=== PATIENT | male | born 1985 | race Caucasian/White ===

== ENCOUNTER 2016-07-13 16:22 | Emergency (ER) | payer SELFPAY ==
[~2016-07-13] VITALS: Ht 175.3 cm; Wt 66.0 kg
[~2016-07-13 16:22] MED LIST: OLAN10 PO; SERT50 PO
[2016-07-13 16:45] VITALS: BP 143/79; PULSE 101; RESP 18; TEMP 98.5; O2SAT 97
--- NOTE | 2016-07-13 18:29 | PD ---
HPI Chief Complaint: Psychiatric Symptoms Time Seen by Provider: 17:09 Travel History International Travel<30 days: No Contact w/Intl Traveler<30days: No Traveled to known affect area: No History of Present Illness HPI 31-year-old male arrives under Claudio act. According to law enforcement note the patient was acting aggressively at his home. The patient states when he woke up his mom had taken something of his which made him mad and aggressive. He reports IV drug use; last injected 2 days ago. Reports injecting "everything." Denies alcohol use or drug use today. Reports alcohol use occasionally. Reports tobacco use daily. Reports marijuana use. Denies auditory or visual hallucinations. Denies suicidal or homicidal ideations. Denies being up-to-date on tetanus vaccination. Has no emergent medical complaints. Is complaining of some cuts to his hands, primarily one to his right thumb. Denies fever, chills, nausea, vomiting. Denies chest pain, shortness of breath, abdominal pain, nausea, vomiting. History of asthma. Denies other significant past medical history. No known allergies. No other modifying factors or associated signs and symptoms. PFSH Past Medical History Asthma: Yes Bipolar Disorder: Yes Diminished Hearing: No Respiratory: Yes (ASTHMA) Immunizations Current: No Schizophrenia: Yes Influenza Vaccination: No Past Surgical History Abdominal Surgery: Yes (LEFT INGUINAL HERNIA REPAIR) Other Surgery: Yes (SKIN GRAFTS ) Social History Alcohol Use: Yes ("OFTEN") Tobacco Use: Yes (1 PPD) Substance Use: Yes (SEE BELOW, CHRONIC SUBSTANCE ABUSE SINCE A YOUNG AGE) Allergies-Medications (Allergen,Severity, Reaction): Coded Allergies: No Known Allergies (Verified , 07/13/16) Reported Meds & Prescriptions Reported Meds & Active Scripts Active No Active Prescriptions or Reported Medications Review of Systems Except as stated in HPI: all other systems reviewed are Neg Physical Exam Narrative GENERAL: Well-nourished, well-developed male patient, in no acute distress; disheveled SKIN: Warm and dry. Track haywood noted to the left forearm. Right thumb with deep abrasion/cut; is without erythema, edema, drainage. Multiple scab haywood to scalp, bilateral upper extremities noted. All areas without signs of infection or cellulitic process. HEAD: Atraumatic. Normocephalic. EYES: Pupils equal and round. ENT: Mucosa pink and moist. NECK: Supple. Trachea midline. CARDIOVASCULAR: Regular rate and rhythm. No murmur appreciated. RESPIRATORY: No accessory muscle use. Clear to auscultation. Breath sounds equal bilaterally. GASTROINTESTINAL: Abdomen soft, non-tender, nondistended. Hepatic and splenic margins not palpable. Bowel sounds are active 4 quadrants. MUSCULOSKELETAL: No obvious deformities. No clubbing. No cyanosis. No edema. NEUROLOGICAL: Awake and alert. Oriented 3. No obvious cranial nerve deficits. Motor grossly within normal limits. Normal speech. Moves all extremities. 5/5 strength to all extremities. PSYCHIATRIC: No delusional thought processes. No hallucinations. Data Data Last Documented VS Vital Signs Date Time Temp Pulse Resp B/P Pulse Ox O2 Delivery O2 Flow Rate FiO2 07/13/16 18:13 101 20 07/13/16 16:45 98.5 143/79 97 Orders Complete Blood Count With Diff (07/13/16 16:57) Comprehensive Metabolic Panel (07/13/16 16:57) Drug Screen, Random Urine (07/13/16 16:57) Alcohol (Ethanol) (07/13/16 16:57) Salicylates (Aspirin) (07/13/16 16:57) Tylenol (Acetaminophen) (07/13/16 16:57) Psych Screen (07/13/16 16:57) Tetanus/Diphtheria Tox Adult (Tetanus/Di (07/13/16 18:30) Labs Laboratory Tests Test 07/13/16 07/13/16 17:00 19:10 Urine Opiates Screen NEG Urine Barbiturates Screen NEG Urine Amphetamines Screen POS Urine Benzodiazepines Screen NEG Urine Cocaine Screen NEG Urine Cannabinoids Screen POS White Blood Count 8.8 TH/MM3 Red Blood Count 4.60 MIL/MM3 Hemoglobin 14.5 GM/DL Hematocrit 40.4 % Mean Corpuscular Volume 87.8 FL Mean Corpuscular Hemoglobin 31.4 PG Mean Corpuscular Hemoglobin 35.8 % Concent Red Cell Distribution Width 13.7 % Platelet Count 223 TH/MM3 Mean Platelet Volume 8.6 FL Neutrophils (%) (Auto) 57.4 % Lymphocytes (%) (Auto) 26.3 % Monocytes (%) (Auto) 8.5 % Eosinophils (%) (Auto) 6.8 % Basophils (%) (Auto) 1.0 % Neutrophils # (Auto) 5.1 TH/MM3 Lymphocytes # (Auto) 2.3 TH/MM3 Monocytes # (Auto) 0.7 TH/MM3 Eosinophils # (Auto) 0.6 TH/MM3 Basophils # (Auto) 0.1 TH/MM3 CBC Comment DIFF FINAL Differential Comment Sodium Level 139 MEQ/L Potassium Level 4.7 MEQ/L Chloride Level 106 MEQ/L Carbon Dioxide Level 25.6 MEQ/L Anion Gap 7 MEQ/L Blood Urea Nitrogen 13 MG/DL Creatinine 1.00 MG/DL Estimat Glomerular Filtration 88 ML/MIN Rate Random Glucose 97 MG/DL Calcium Level 8.6 MG/DL Total Bilirubin 0.7 MG/DL Aspartate Amino Transf 135 U/L (AST/SGOT) Alanine Aminotransferase 198 U/L (ALT/SGPT) Alkaline Phosphatase 87 U/L Total Protein 7.2 GM/DL Albumin 3.0 GM/DL Salicylates Level LESS THAN 1.7 MG/DL Acetaminophen Level LESS THAN 2.0 MCG/ML Ethyl Alcohol Level LESS THAN 3 MG/DL MDM Medical Decision Making Medical Screen Exam Complete: Yes Emergency Medical Condition: Yes Medical Record Reviewed: Yes Differential Diagnosis Medical clearance for psych evaluation, substance induced mood disorder, psychosis, polysubstance abuse Narrative Course Patient presents under a Claudio act. Physical examination and vital signs are essentially unremarkable. Patient has no medical complaints to report. Psych screen has been ordered. If the laboratory results are unremarkable, the patient will be medically cleared for psychiatric evaluation and disposition. Diagnosis Primary Impression: Medical clearance for psychiatric admission Scripts No Active Prescriptions or Reported Meds Condition: Stable Shawna Vickers Jul 13, 2016 18:29
[2016-07-13] MEDS ORDERED: TETANUS/DIPHTHERIA TOXOID ADULT 0.5 ML VIAL IM ONE (18:30)
[2016-07-13 19:03] LABS: AMPHETAMINE, URINE POS (NEG); BARBITURATES, URINE NEG (NEG); COCAINE, URINE NEG (NEG)
[2016-07-13 19:30] VITALS: BP 126/74; PULSE 82; RESP 16; TEMP 98.2; O2SAT 97
[2016-07-13 19:45] LABS: AUTOMATED NEUTROPHIL # 5.1 TH/MM3 (1.8-7.7); BASOPHIL # 0.1 TH/MM3 (0-0.2); EOSINOPHIL # 0.6 TH/MM3 (0-0.4); EOSINOPHIL % 6.8 % (0.0-4.0); HEMATOCRIT 40.4 % (39.0-51.0); HEMO FLAGS DIFF FINAL; LYMPH % 26.3 % (9.0-44.0); LYMPHOCYTE # 2.3 TH/MM3 (1.0-4.8); MEAN CELL VOLUME 87.8 FL (80.0-100.0); MEAN CORPUSCULAR HEMOGLOBIN 31.4 PG (27.0-34.0); MEAN CORPUSCULAR HGB CONC 35.8 % (32.0-36.0); MONO % 8.5 % (0.0-8.0); NEUT % 57.4 % (16.0-70.0); PLATELET COUNT 223 TH/MM3 (150-450); RED CELL DISTRIBUTION WIDTH 13.7 % (11.6-17.2); WHITE BLOOD COUNT 8.8 TH/MM3 (4.0-11.0)
[2016-07-13 20:18] LABS: ANION GAP 7 MEQ/L (5-15)
[2016-07-13 20:21] LABS: ALKALINE PHOSPHATASE 87 U/L (45-117); ALT (GPT) 198 U/L (12-78); AST (GOT) 135 U/L (15-37); BICARBONATE 25.6 MEQ/L (21.0-32.0); BLOOD UREA NITROGEN 13 MG/DL (7-18); CHLORIDE 106 MEQ/L (98-107); GLOMERULAR FILTRATION RATE 88 ML/MIN (>89); SODIUM (NA) 139 MEQ/L (136-145); TOTAL BILIRUBIN ADULT 0.7 MG/DL (0.2-1.0)
[2016-07-13 20:28] LABS: ACETAMINOPHEN LESS THAN 2.0 MCG/ML (10.0-30.0); POTASSIUM 4.7 MEQ/L (3.5-5.1)
[2016-07-13 22:19] VITALS: BP 121/63; PULSE 68; RESP 18; TEMP 98.3; O2SAT 99
[2016-07-14 02:11] VITALS: BP 138/78; PULSE 102; RESP 18; O2SAT 98
[2016-07-14 06:09] VITALS: BP 130/60; PULSE 99; RESP 18; O2SAT 98
--- NOTE | 2016-07-14 16:21 | PD ---
History of Present Illness Chief Complaint: Psychiatric Symptoms Time Seen by Provider: 15:45 Travel History International Travel<30 Days: No Contact w/Intl Traveler<30days: No Known affected area: No Legal Status Legal Status: Claudio Act Claudio Act Signed By: Danna العلي Claudio Act Comment: 07/13/2016 1263 History of Present Illness: History of Present Illness 31-year-old male with history of substance abuse who is under Claudio act initiated by MARTI. According to law enforcement report the patient was acting aggressively at his home and was destroying property in the home. It is alleged he walks around with baseball bat and thinks that someone is after him. As per ed documentation The patient states that he woke up his mom and his mom had taken something of his which made him mad and aggressive.He admits to slamming a door but he did not assault his mother or anyone else. States " I would never hit a girl". He has along history of substance use including marijuana, crack, methamphetamines. He is an IV drug user and has track haywood in his left arm. As per EMR he has had several visits to ed and has been admitted to [facility] with drug induced psychosis. He tells me he does not follow up with discharge medications and continues to use drugs. His toxicology report is positive for amphetamines and cannabinoid. Patient was monitored in J pod and he has been sleeping. There has been no agitation and no erratic behavior while in J pod. he is pleasant , cooperative. Speech his clear . He answers questions appropriately and is forthcoming with his use of substances. He denies any hallucinations, no delusions and no paranoia. He denies any suicidal or homicidal ideation, intent or plan. He does report feeling nervous at times. He relates that " there is always drama at my house". No other reported stressors. I spoke with his sister, Reva who called our unit. She has no concerns regarding her brother and states that he did not threaten anyone. She goes on to say that his mother " filed false reports on him". She will be picking him up if he is discharged. [facility] Past Medical History Asthma: Yes Bipolar Disorder: Yes Diminished Hearing: No Respiratory: Yes (ASTHMA) Immunizations Current: No Schizophrenia: Yes Influenza Vaccination: No Past Surgical History Abdominal Surgery: Yes (LEFT INGUINAL HERNIA REPAIR) Other Surgery: Yes (SKIN GRAFTS ) Psychiatric History Psychiatric History Hx Psychiatric Treatment: [facility] ADMISSIONS 11/08-11/11/2015 FOR DRUG INDUCED PSYCHOSIS. 10/27-11/05/2015 FOR PSYCHOSIS, UNSPECIFIED. H/O SCHIZOPHRENIA, BIPOLAR D/O AND PREVIOUS SUICIDE ATTEMPT. DENIES TAKING ANY CURRENT PSYCHOTROPIC MEDICATIONS. History of Inpatient Treatment: Yes Guns or firearms in home: No Social History Single male. Completed 8th grade. Never and no children. Lives with his mother. Works as a day agriculture laborer. Hx Alcohol Use: Yes ("OFTEN") Hx Tobacco Use: Yes (1 PPD) Hx Substance Use: Yes Substance Use Type: Crack, Marijuana, Amphetamines-Stimulants, Nicotine/ Cigarettes, Cocaine, Other Hx of Substance Use Treatment: No Family Psychiatric History unknown mental illness in his mother Allergies-Medications (Allergen,Severity, Reaction): Coded Allergies: No Known Allergies (Verified , 07/13/16) Reported Meds & Prescriptions Reported Meds & Active Scripts Active No Active Prescriptions or Reported Medications Review of Systems Constitutional: DENIES: Diaphoretic episodes, Fatigue, Fever, Weight gain, Weight loss, Chills, Dizziness, Change in appetite, Night Sweats Endocrine: DENIES: Heat/cold intolerance, Polydipsia, Polyuria, Polyphagia Eyes: DENIES: Blurred vision, Diplopia, Eye inflammation, Eye pain, Vision loss , Photosensitivity, Double Vision Ears, nose, mouth, throat: DENIES: Tinnitus, Hearing loss, Vertigo, Nasal discharge, Oral lesions, Throat pain, Hoarseness, Ear Pain, Running Nose, Epistaxis, Sinus Pain, Toothache, Odynophagia Cardiovascular: DENIES: Chest pain, Palpitations, Syncope, Dyspnea on Exertion , PND, Lower Extremity Edema, Orthopnea, Claudication Gastrointestinal: DENIES: Abdominal pain, Black stools, Bloody stools, Constipation, Diarrhea, Nausea, Vomiting, Difficulty Swallowing, Anorexia Genitourinary: DENIES: Sexual dysfunction, Urinary frequency, Urinary incontinence, Urgency, Hematuria, Dysuria, Nocturia, Penile Discharge, Testicular Pain, Testicular Swelling Musculoskeletal: DENIES: Joint pain, Muscle aches, Stiffness, Joint Swelling, Back pain, Neck pain Integumentary: COMPLAINS OF: Abnormal pigmentation (track mars.) Hematologic/lymphatic: DENIES: Bruising, Lymphadenopathy Neurologic: DENIES: Abnormal gait, Headache, Localized weakness, Paresthesias, Seizures, Speech Problems, Tremor, Poor Balance Psychiatric: DENIES: Anxiety, Confusion, Mood changes, Depression, Hallucinations, Agitation, Suicidal Ideation, Homicidal Ideation, Delusions Exam Alert: Yes [place]: Person (ox4) Mood: Calm Affect: Euthymic Speech: Clear, Logical Eye Contact: Normal Memory Intact: Comment (no impairment) Hallucinations: Other (negative) Delusions: No Suicidal: Ideation (deneis any) Homicidal: Ideation (deneis any) Insight/Judgement poor..not impaired MDM Medical Decision Making Medical Record Reviewed: Yes Assessment/Plan 31 year old with hx of substance use disorder. He presented under a bA for erratic and aggressive behavior in context tof substance intoxication and family argument. He did not assault anyone and currently denies any intent or desire to harm anyone. he is calm and has been appropriate. No psychosis. Patient at this time does not meet criteria for BA and will be discharged to home Psychoeducation provided regarding substance use and follow up at [facility]. Orders Complete Blood Count With Diff (07/13/16 16:57) Comprehensive Metabolic Panel (07/13/16 16:57) Drug Screen, Random Urine (07/13/16 16:57) Alcohol (Ethanol) (07/13/16 16:57) Salicylates (Aspirin) (07/13/16 16:57) Tylenol (Acetaminophen) (07/13/16 16:57) Psych Screen (07/13/16 16:57) Tetanus/Diphtheria Tox Adult (Tetanus/Di (07/13/16 18:30) Diet Regular Basic (07/14/16 Breakfast) Diet Regular Basic (07/14/16 Lunch) Diet Regular Basic (07/14/16 Dinner) Results Vital Signs Date Time Temp Pulse Resp B/P Pulse Ox O2 Delivery O2 Flow Rate FiO2 07/14/16 06:09 99 18 130/60 98 Room Air 07/14/16 02:11 102 18 138/78 98 Room Air 07/13/16 22:19 98.3 68 18 121/63 99 Room Air 07/13/16 19:30 98.2 82 16 126/74 97 Room Air 07/13/16 18:13 101 20 07/13/16 16:45 98.5 101 18 143/79 97 Laboratory Tests Test 07/13/16 07/13/16 17:00 19:10 Urine Opiates Screen NEG Urine Barbiturates Screen NEG Urine Amphetamines Screen POS Urine Benzodiazepines Screen NEG Urine Cocaine Screen NEG Urine Cannabinoids Screen POS White Blood Count 8.8 Red Blood Count 4.60 Hemoglobin 14.5 Hematocrit 40.4 Mean Corpuscular Volume 87.8 Mean Corpuscular Hemoglobin 31.4 Mean Corpuscular Hemoglobin 35.8 Concent Red Cell Distribution Width 13.7 Platelet Count 223 Mean Platelet Volume 8.6 Neutrophils (%) (Auto) 57.4 Lymphocytes (%) (Auto) 26.3 Monocytes (%) (Auto) 8.5 Eosinophils (%) (Auto) 6.8 Basophils (%) (Auto) 1.0 Neutrophils # (Auto) 5.1 Lymphocytes # (Auto) 2.3 Monocytes # (Auto) 0.7 Eosinophils # (Auto) 0.6 Basophils # (Auto) 0.1 CBC Comment DIFF FINAL Differential Comment Sodium Level 139 Potassium Level 4.7 Chloride Level 106 Carbon Dioxide Level 25.6 Anion Gap 7 Blood Urea Nitrogen 13 Creatinine 1.00 Estimat Glomerular Filtration 88 Rate Random Glucose 97 Calcium Level 8.6 Total Bilirubin 0.7 Aspartate Amino Transf 135 (AST/SGOT) Alanine Aminotransferase 198 (ALT/SGPT) Alkaline Phosphatase 87 Total Protein 7.2 Albumin 3.0 Salicylates Level LESS THAN 1.7 Acetaminophen Level LESS THAN 2.0 Ethyl Alcohol Level LESS THAN 3 Diagnosis Primary Impression: Polysubstance abuse Psychiatrically Cleared: Yes Departure Forms: Tests/Procedures Patient Instructions: General Instructions Med/ Other Pt Specific Info: No Meds Exist/No RX given Prescriptions No Active Prescriptions or Reported Meds Disposition: DISCHARGE HOME Condition: Stable Kyleigh Mehtas Antonina Fox ALINA Jul 14, 2016 16:21
== END 2016-07-14 17:37 | disposition home or self-care (01) ==
LOC: NEDAMB 16:22 → NEPJ 07-14 17:37
DX: F19.20 Other psychoactive substance dependence, uncomplicated (principal); F17.210 Nicotine dependence, cigarettes, uncomplicated; F10.20 Alcohol dependence, uncomplicated; F20.9 Schizophrenia, unspecified; F31.9 Bipolar disorder, unspecified; Z23 Encounter for immunization
CPT/HCPCS: 80053; 80307; 80320; 80329; 85025; 90471; 90714; G0480

== ENCOUNTER 2016-08-07 16:25 | Inpatient (IN) | payer SELFPAY ==
[~2016-08-07] VITALS: Ht 175.3 cm; Wt 67.0 kg
[~2016-08-07 16:25] MED LIST changes: +LACTATED RINGER'S 1000 ML INJ 1,000 ML IV ONE; +NEOSTIGMINE 3 MG/3 ML SYR IV ONE; -OLAN10 PO; +ONDANSETRON HCL 4 MG/2 ML VIAL IV PUSH ONE; +PROPOFOL 200 MG/20 ML AMP IV ONE; -SERT50 PO
[2016-08-07 16:29] VITALS: BP 138/95; PULSE 98; RESP 14; TEMP 97.8; O2SAT 100
[2016-08-07] MEDS ORDERED: HYDROmorphone HCL PF 2 MG/ML VIAL IV PUSH ONE ×2 (16:45→17:30)
[2016-08-07] MEDS ORDERED: DIPHTH/TETANUS/ACEL PERTUSSIS (BOOSTER) 0.5 ML VIAL/PFS IM ONE (16:45)
[2016-08-07] MEDS ORDERED: SODIUM CHLOR 0.9% 1000 ML INJ 1,000 ML IV ONE (16:45)
[2016-08-07] MEDS ORDERED: ceFAZolin 2 GM PREMIX 50 ML IV ONE (16:45)
--- NOTE | 2016-08-07 17:00 | RADRPT ---
EXAM DATE/TIME: 08/07/2016 16:46 [facility] COMPARISON: No previous studies available for comparison. INDICATIONS : Pain and laceration left forearm MEDICAL HISTORY : None. SURGICAL HISTORY : None. ENCOUNTER: Initial ACUITY: 1 day PAIN SCORE: 10/10 LOCATION: Left Forearm FINDINGS: Two view examination of the left forearm demonstrates fracture of ulnar styloid. Soft tissue lacerati on and swelling. Bony mineralization is normal. CONCLUSION: 1. Ulnar styloid fracture. Teja Shafer MD on August 07, 2016 at 16:58 Board Certified Radiologist. This report was verified electronically.
[2016-08-07 17:18] LABS: AUTOMATED NEUTROPHIL # 7.3 TH/MM3 (1.8-7.7); BASOPHIL # 0.1 TH/MM3 (0-0.2); BASOPHIL % 0.7 % (0.0-2.0); EOSINOPHIL # 0.8 TH/MM3 (0-0.4); EOSINOPHIL % 5.9 % (0.0-4.0); HEMATOCRIT 40.6 % (39.0-51.0); HEMO FLAGS DIFF FINAL; LYMPH % 27.3 % (9.0-44.0); LYMPHOCYTE # 3.6 TH/MM3 (1.0-4.8); MEAN CELL VOLUME 88.3 FL (80.0-100.0); MEAN CORPUSCULAR HEMOGLOBIN 30.2 PG (27.0-34.0); MEAN CORPUSCULAR HGB CONC 34.3 % (32.0-36.0); MONO % 11.1 % (0.0-8.0); PLATELET COUNT 204 TH/MM3 (150-450); WHITE BLOOD COUNT 13.3 TH/MM3 (4.0-11.0)
--- NOTE | 2016-08-07 17:23 | PD ---
HPI Chief Complaint: Laceration/Skin Injury Time Seen by Provider: 16:33 Travel History International Travel<30 days: No Contact w/Intl Traveler<30days: No Traveled to known affect area: No History of Present Illness HPI Patient is a 31 year old male who comes in after cutting himself with a chain- saw. He says he was cutting palm trees when the saw slipped and he cut his arm. He says he was standing on a steel drum at the time, and fell off. He denies any other injuries. He denies hitting his head or any loss of consciousness. Only complains of pain to his left arm. He says it is unable to move his fingers to his left hand. He does not provide much other history. PFSH Past Medical History Asthma: Yes Bipolar Disorder: Yes Diminished Hearing: No Respiratory: Yes (ASTHMA) Immunizations Current: No Schizophrenia: Yes Past Surgical History Abdominal Surgery: Yes (LEFT INGUINAL HERNIA REPAIR) Other Surgery: Yes (SKIN GRAFTS ) Social History Alcohol Use: Yes ("OFTEN") Tobacco Use: Yes (1 PPD) Substance Use: Yes Allergies-Medications (Allergen,Severity, Reaction): Coded Allergies: No Known Allergies (Verified , 08/07/16) Reported Meds & Prescriptions Reported Meds & Active Scripts Active No Active Prescriptions or Reported Medications Review of Systems Except as stated in HPI: all other systems reviewed are Neg General / Constitutional: No: Fever, Chills HENT: No: Headaches Cardiovascular: No: Chest Pain or Discomfort Respiratory: No: Shortness of Breath Gastrointestinal: No: Nausea, Vomiting, Abdominal Pain Musculoskeletal: Positive: Pain Skin: Positive Other (laceration) Neurologic: Positive: Sensory Disturbance Physical Exam Narrative GENERAL: Awake and alert, in moderate distress due to pain. SKIN: Warm and dry. Macerated skin to the dorsal aspect of the left wrist. No active bleeding seen. HEAD: Atraumatic. Normocephalic. EYES: Pupils equal and round. No scleral icterus. ENT: Mucous membranes pink and moist. NECK: Trachea midline. No JVD. No cervical spine tenderness. CARDIOVASCULAR: Regular rate and rhythm. No murmur appreciated. RESPIRATORY: No accessory muscle use. Clear to auscultation. Breath sounds equal bilaterally. GASTROINTESTINAL: Abdomen soft, non-tender, nondistended. MUSCULOSKELETAL: No clubbing. No cyanosis. No edema. Exposed bone of the left wrist, unable to extend the fingers of the left hand, decreased sensation of the left hand. Cut tendons visible within the laceration. NEUROLOGICAL: Awake and alert. No obvious cranial nerve deficits. Motor grossly within normal limits. Normal speech. PSYCHIATRIC: Appropriate mood and affect; insight and judgment normal. Data Data Last Documented VS Vital Signs Date Time Temp Pulse Resp B/P Pulse Ox O2 Delivery O2 Flow Rate FiO2 08/07/16 16:29 97.8 98 14 138/95 100 Orders Forearm (2vws) (08/07/16 ) Cta Up Extrem W Iv Cont W 3d (08/07/16 ) Complete Blood Count With Diff (08/07/16 16:33) Comprehensive Metabolic Panel (08/07/16 16:33) Act Partial Throm Time (Ptt) (08/07/16 16:33) Prothrombin Time / Inr (Pt) (08/07/16 16:33) Sodium Chlor 0.9% 1000 Ml Inj (Ns 1000 M (08/07/16 16:45) Hydromorphone Pf Inj (Dilaudid Pf Inj) (08/07/16 16:45) Cefazolin 2 Gm Premix (Ancef 2 Gm Premix (08/07/16 16:45) Gxpo-Bdz-Rkgsvg (Booster) Inj (Boostrix (08/07/16 16:45) Hydromorphone Pf Inj (Dilaudid Pf Inj) (08/07/16 17:30) Admit Order (Ed Use Only) (08/07/16 ) Diet Npo (08/07/16 Dinner) Vital Signs (Adult) TOO.Q4H (08/07/16 17:27) Hydromorphone Pf Inj (Dilaudid Pf Inj) (08/07/16 17:30) Ondansetron Inj (Zofran Inj) (08/07/16 17:30) Cefazolin Inj (Ancef Inj) (08/08/16 01:00) Labs Laboratory Tests Test 08/07/16 16:50 White Blood Count 13.3 TH/MM3 Red Blood Count 4.60 MIL/MM3 Hemoglobin 13.9 GM/DL Hematocrit 40.6 % Mean Corpuscular Volume 88.3 FL Mean Corpuscular Hemoglobin 30.2 PG Mean Corpuscular Hemoglobin 34.3 % Concent Red Cell Distribution Width 14.0 % Platelet Count 204 TH/MM3 Mean Platelet Volume 8.6 FL Neutrophils (%) (Auto) 55.0 % Lymphocytes (%) (Auto) 27.3 % Monocytes (%) (Auto) 11.1 % Eosinophils (%) (Auto) 5.9 % Basophils (%) (Auto) 0.7 % Neutrophils # (Auto) 7.3 TH/MM3 Lymphocytes # (Auto) 3.6 TH/MM3 Monocytes # (Auto) 1.5 TH/MM3 Eosinophils # (Auto) 0.8 TH/MM3 Basophils # (Auto) 0.1 TH/MM3 CBC Comment DIFF FINAL Differential Comment Prothrombin Time 11.8 SEC Prothromb Time International 1.1 RATIO Ratio Activated Partial 26.1 SEC Thromboplast Time Sodium Level 140 MEQ/L Potassium Level 3.7 MEQ/L Chloride Level 103 MEQ/L Carbon Dioxide Level 30.3 MEQ/L Anion Gap 7 MEQ/L Blood Urea Nitrogen 19 MG/DL Creatinine 0.84 MG/DL Estimat Glomerular Filtration 108 ML/MIN Rate Random Glucose 80 MG/DL Calcium Level 8.5 MG/DL Total Bilirubin 0.9 MG/DL Aspartate Amino Transf 149 U/L (AST/SGOT) Alanine Aminotransferase 220 U/L (ALT/SGPT) Alkaline Phosphatase 79 U/L Total Protein 7.4 GM/DL Albumin 3.4 GM/DL [facility] Medical Decision Making Medical Screen Exam Complete: Yes Emergency Medical Condition: Yes Medical Record Reviewed: Yes Differential Diagnosis Tendon injury versus open fracture versus laceration Narrative Course Patient is a 31-year-old male who comes in after cutting himself with a chainsaw. Exam shows large gaping laceration with exposed cut tendons, he is unable to extend the fingers of his left hand. IV established, labs sent. Patient given Ancef, Dilaudid. He had a tetanus vaccine within the last year. X-ray of the forearm performed shows a fracture of the ulnar styloid. Dr. Berg consult it for repair. She will come see the patient, taken to the OR. Patient will need admission. Diagnosis Primary Impression: Open fracture Additional Impressions: Extensor tendon laceration of left wrist with open wound Qualified Code: S66.922A - Extensor tendon laceration of left wrist with open wound, initial encounter Contact with chainsaw as cause of accidental injury Admitting Information Admitting Physician Requests: Admit Scripts No Active Prescriptions or Reported Meds Claritza Wynn MD Aug 07, 2016 17:23
[2016-08-07 17:28] LABS: ANION GAP 7 MEQ/L (5-15); AST (GOT) 149 U/L (15-37); BICARBONATE 30.3 MEQ/L (21.0-32.0); BLOOD UREA NITROGEN 19 MG/DL (7-18); CHLORIDE 103 MEQ/L (98-107); GLOMERULAR FILTRATION RATE 108 ML/MIN (>89); POTASSIUM 3.7 MEQ/L (3.5-5.1); SODIUM (NA) 140 MEQ/L (136-145)
[2016-08-07 17:30] LABS: APTT (PATIENT) 26.1 SEC (24.3-30.1); INTERNATIONAL NORMALIZED RATIO 1.1 RATIO; PROTHROMBIN TIME - PATIENT 11.8 SEC (9.8-11.6)
[2016-08-07 17:31] LABS: ALKALINE PHOSPHATASE 79 U/L (45-117); ALT (GPT) 220 U/L (12-78); TOTAL BILIRUBIN ADULT 0.9 MG/DL (0.2-1.0)
--- NOTE | 2016-08-07 18:00 | HHI.HP ---
[facility] No Primary Care Physician Admission Diagnosis chainsaw injury Diagnoses: (1) Extensor tendon laceration of left wrist with open wound Diagnosis: Principal (2) Contact with chainsaw as cause of accidental injury Diagnosis: Principal Chief Complaint: left hand injury Travel History International Travel<30 Days: No Contact w/Intl Traveler <30 Da: No Traveled to Known Affected Are: No History of Present Illness patient is a 31 y/o male who cut his left wrist with a chain saw after he was trying to cut a tree. at the time of my evaluation he was in no acute distress, complaining of pain to the left wrist/ hand. he was found to have tendon laceration and left ulnar styloid fracture. Review of Systems Constitutional: DENIES: Fever, Weight loss, Chills, Night Sweats Eyes: DENIES: Blurred vision, Diplopia, Vision loss, Double Vision Ears, nose, mouth, throat: DENIES: Tinnitus, Vertigo, Throat pain, Epistaxis Respiratory: DENIES: Apneas, Cough, Snoring, Wheezing, Hemoptysis, Sputum production, Shortness of breath Cardiovascular: DENIES: Chest pain, Palpitations, Syncope, Dyspnea on Exertion , PND, Lower Extremity Edema, Orthopnea, Claudication Gastrointestinal: DENIES: Abdominal pain, Black stools, Bloody stools, Constipation, Diarrhea, Nausea, Vomiting, Difficulty Swallowing, Anorexia Genitourinary: DENIES: Urinary frequency, Urgency, Hematuria, Dysuria Musculoskeletal: COMPLAINS OF: Joint pain (left hand), DENIES: Muscle aches, Stiffness, Joint Swelling Integumentary: DENIES: Rash Neurologic: DENIES: Abnormal gait, Headache, Localized weakness, Paresthesias, Seizures, Speech Problems, Tremor, Poor Balance Psychiatric: DENIES: Anxiety, Confusion, Mood changes, Depression, Hallucinations, Agitation, Suicidal Ideation, Homicidal Ideation, Delusions Past Family Social History Past Medical History asthma bipolar disorder Past Surgical History surgery on the right upper extremity inguinal hernia repair Reported Medications none reported. Allergies: Coded Allergies: No Known Allergies (Verified , 08/07/16) Active Ordered Medications Current Medications Sodium Chloride (NS 1000 ml Inj) 1,000 ml @ 999 mls/hr BOLUS ONCE IV Last administered on 08/07/16 16:43; Start 08/07/16 at 16:45; Stop 08/07/16 at 17:45 ; Status DC Hydromorphone HCl 2 mg 2 mg ONCE ONCE IV PUSH Last administered on 08/07/16 16:43; Start 08/07/16 at 16:45; Stop 08/07/16 at 16:46; Status DC Cefazolin Sodium/ Dextrose (Ancef 2 Gm Premix) 50 ml @ 100 mls/hr ONCE ONCE IV Last administered on 08/07/16 16:43; Start 08/07/16 at 16:45; Stop at 17:14; Status DC Diphtheria/ Tetanus/Acell Pertussis (Boostrix Inj) 0.5 ml ONCE ONCE IM ; Start 08/07/16 at 16:45; Stop 08/07/16 at 16:46; Status DC Hydromorphone HCl (Dilaudid Pf Inj) 2 mg ONCE ONCE IV PUSH Last administered on 08/07/16 17:40; Start 08/07/16 at 17:30; Stop 08/07/16 at 17:31; Status DC Hydromorphone HCl (Dilaudid Pf Inj) 1 mg Q3HR PRN IV PUSH PAIN; Start 08/07/16 at 17:30; Status UNV Ondansetron HCl 4 mg 4 mg Q8HR PRN IV PUSH NAUSEA; Start 08/07/16 at 17:30; Status UNV Cefazolin Sodium/ Sodium Chloride (Ancef Inj/NS Inj) 100 ml @ 200 mls/hr Q8H IV ; Start 08/08/16 at 01:00; Status UNV Family History not relevant to this presentation. Social History smokes and uses IV drugs. drinks occasionally. Physical Exam Vital Signs Vital Signs Date Time Temp Pulse Resp B/P Pulse Ox O2 Delivery O2 Flow Rate FiO2 08/07/16 16:29 97.8 98 14 138/95 100 Physical Exam GENERAL: This is a well-nourished, well-developed patient, in no apparent distress. SKIN: left wrist/hand covered with clean dressing. HEAD: Atraumatic. Normocephalic. No temporal or scalp tenderness. EYES: Pupils equal round and reactive. Extraocular motions intact. No scleral icterus. No injection or drainage. ENT: Nose without bleeding, purulent drainage or septal hematoma. Throat without erythema, tonsillar hypertrophy or exudate. Uvula midline. Airway patent. NECK: Trachea midline. No JVD or lymphadenopathy. Supple, nontender, no meningeal signs. CARDIOVASCULAR: Regular rate and rhythm without murmurs, gallops, or rubs. RESPIRATORY: Clear to auscultation. Breath sounds equal bilaterally. No wheezes , rales, or rhonchi. GASTROINTESTINAL: Abdomen soft, non-tender, nondistended. No hepato-splenomegaly , or palpable masses. No guarding. MUSCULOSKELETAL: left wrist/hand covered with clean dressing. NEUROLOGICAL: Awake and alert. Cranial nerves II through XII intact. Motor and sensory grossly within normal limits. Five out of 5 muscle strength in all muscle groups. Normal speech. Laboratory Laboratory Tests Test 08/07/16 16:50 White Blood Count 13.3 Red Blood Count 4.60 Hemoglobin 13.9 Hematocrit 40.6 Mean Corpuscular Volume 88.3 Mean Corpuscular Hemoglobin 30.2 Mean Corpuscular Hemoglobin 34.3 Concent Red Cell Distribution Width 14.0 Platelet Count 204 Mean Platelet Volume 8.6 Neutrophils (%) (Auto) 55.0 Lymphocytes (%) (Auto) 27.3 Monocytes (%) (Auto) 11.1 Eosinophils (%) (Auto) 5.9 Basophils (%) (Auto) 0.7 Neutrophils # (Auto) 7.3 Lymphocytes # (Auto) 3.6 Monocytes # (Auto) 1.5 Eosinophils # (Auto) 0.8 Basophils # (Auto) 0.1 CBC Comment DIFF FINAL Differential Comment Prothrombin Time 11.8 Prothromb Time International 1.1 Ratio Activated Partial 26.1 Thromboplast Time Sodium Level 140 Potassium Level 3.7 Chloride Level 103 Carbon Dioxide Level 30.3 Anion Gap 7 Blood Urea Nitrogen 19 Creatinine 0.84 Estimat Glomerular Filtration 108 Rate Random Glucose 80 Calcium Level 8.5 Total Bilirubin 0.9 Aspartate Amino Transf 149 (AST/SGOT) Alanine Aminotransferase 220 (ALT/SGPT) Alkaline Phosphatase 79 Total Protein 7.4 Albumin 3.4 Result Diagram: 08/07/16 1650 08/07/16 1650 Imaging Last Impressions Radius/Ulna X-Ray 08/07/16 0000 Signed Impressions: Service Date/Time: Sunday, August 07, 2016 16:46 - CONCLUSION: 1. Ulnar styloid fracture. Teja Shafer MD Assessment and Plan Assessment and Plan A/P - left hand/wrist injury with chain saw with tendon laceration and ulnar styloid fracture NPO for now- start IV fluid and pain control-continue IV antibiotic- received tetanus shot in ER- hand surgery consulted -elevated LFT's with history of IV drug abuse; check hepatitis panel Discussed Condition With ER physician and the patient. Physician Certification 2 Midnight Certification Type: Admission for Inpatient Services Order for Inpatient Services The services are ordered in accordance with Medicare regulations or non- Medicare payer requirements, as applicable. In the case of services not specified as inpatient-only, they are appropriately provided as inpatient services in accordance with the 2-midnight benchmark. Estimated LOS (days): 2 days is the estimated time the patient will need to remain in the hospital, assuming treatment plan goals are met and no additional complications. Post-Hospital Plan: Home Problem Qualifiers (1) Extensor tendon laceration of left wrist with open wound: Qualified Code: S66.922A - Extensor tendon laceration of left wrist with open wound, initial encounter Radha Woo MD Aug 07, 2016 18:00
[2016-08-07 18:05] VITALS: BP 141/88; PULSE 79; RESP 18; O2SAT 98
[2016-08-07] MEDS: SODIUM CHLOR 0.9% 1000 ML INJ 1,000 ML IV SCH ×2 (18:51→23:05)
[2016-08-07] MEDS ORDERED: BACITRACIN TOP OINT 15 GM TUBE ONE (19:02)
[2016-08-07] MEDS ORDERED: BUPIVACAINE HCL PF 0.5% 30 ML VIAL ONE (19:02)
[2016-08-07] MEDS ORDERED: ceFAZolin INJ 1,000 MG VIAL ONE (19:10)
[2016-08-07] MEDS ORDERED: HALOPERIDOL LACTATE 5 MG/ML AMP ONE (19:16)
[2016-08-07] MEDS ORDERED: NEOMYCIN/POLYMYXIN 1 ML G.U. IRRIGANT IR ONE (19:57)
[2016-08-07] MEDS ORDERED: LIDOCAINE HCL 2% 50 ML VIAL ONE ×2 (20:34→20:45)
[2016-08-07] MEDS ORDERED: fentaNYL CITRATE 250 MCG/5 ML AMP ONE (22:31)
[2016-08-07] MEDS ORDERED: MIDAZOLAM HCL 2 MG/2 ML VIAL ONE (22:31)
--- NOTE | 2016-08-07 23:56 | PD.ORT.PN ---
Subjective Subjective Remarks Patient reports pain left wrist. Please see dictated consult note for full details. Objective Vitals Vital Signs Date Time Temp Pulse Resp B/P Pulse Ox O2 Delivery O2 Flow Rate FiO2 08/07/16 23:30 97.6 67 12 135/93 99 Nasal Cannula 3 08/07/16 23:15 75 12 139/88 99 Nasal Cannula 3 08/07/16 23:00 92 12 135/74 99 Nasal Cannula 3 08/07/16 22:47 91 11 125/66 95 Simple Mask 6 08/07/16 22:42 97.5 95 9 117/66 98 Simple Mask 6 08/07/16 18:05 79 18 141/88 98 Room Air 08/07/16 16:29 97.8 98 14 138/95 100 Result Diagram: 08/07/16 1650 08/07/16 1650 Other Results Laboratory Tests Test 08/07/16 16:50 Prothrombin Time 11.8 SEC (9.8-11.6) Prothromb Time International 1.1 RATIO Ratio Imaging Last 24 hours Impressions Radius/Ulna X-Ray 08/07/16 0000 Signed Impressions: Service Date/Time: Sunday, August 07, 2016 16:46 - CONCLUSION: 1. Ulnar styloid fracture. Teja Shafer MD Objective Remarks Wrist and finger extension splint in place, sitlt m/u/r, <2 sec capillary refill all fingers, able to wiggle fingers in splint Assessment & Plan Assessment and Plan 31yM PMHx significant for psychiatric disorder as well as substance abuse POD0 s /p I&D open fractures left wrist, capsule repair left wrist, extensor tendon repairs left index, middle, ring and small fingers, and extensor tendon repairs left radial and ulnar wrist extensors -Admit to medicine for medical management and 24 hrs of IV Ab -DO NOT REMOVE SPLINT, patient to be educated to not remove splint -Elevate left arm, NWB left arm -Patient will need to establish with OT as outpatient for extensor tendon rehab protocol and custom splint -okay to d/c per hand surgery after 24 hrs of IV Ab Janneth Berg MD Aug 07, 2016 23:56
[2016-08-08 01:42] VITALS: BP 139/79; PULSE 79; RESP 20; TEMP 96.7; O2SAT 96
[2016-08-08] MEDS: ONDANSETRON HCL 4 MG/2 ML VIAL IV PUSH PRN (04:45)
[2016-08-08] MEDS: HYDROmorphone HCL PF 1 MG/ML VIAL IV PUSH PRN ×3 (04:46→18:21)
[2016-08-08 05:29] LABS: AUTOMATED NEUTROPHIL # 11.4 TH/MM3 (1.8-7.7); BASOPHIL % 0.3 % (0.0-2.0); HEMATOCRIT 40.1 % (39.0-51.0); HEMO FLAGS DIFF FINAL; LYMPH % 11.2 % (9.0-44.0); LYMPHOCYTE # 1.5 TH/MM3 (1.0-4.8); MEAN CELL VOLUME 87.5 FL (80.0-100.0); MEAN CORPUSCULAR HEMOGLOBIN 30.2 PG (27.0-34.0); MEAN CORPUSCULAR HGB CONC 34.6 % (32.0-36.0); MONO % 4.7 % (0.0-8.0); NEUT % 83.8 % (16.0-70.0); PLATELET COUNT 203 TH/MM3 (150-450); RED BLOOD COUNT 4.59 MIL/MM3 (4.50-5.90); RED CELL DISTRIBUTION WIDTH 13.9 % (11.6-17.2); WHITE BLOOD COUNT 13.6 TH/MM3 (4.0-11.0)
--- NOTE | 2016-08-08 05:39 | MP ---
cc: LUDIVINA BOBBY MD DATE OF SURGERY 08/07/2016 REASON FOR CONSULTATION Chainsaw injury left wrist. HISTORY OF PRESENT ILLNESS Tim Patel is a 31-year-old right-hand dominant male who states that he was cutting down palm three this afternoon when he slipped off of a barrel and the chainsaw lacerated the dorsum of his left wrist. He reports significant pain over the left wrist, denies paresthesias. He states he has had multiple prior fractures of the left hand. He has had prior surgery of the right upper extremity for necrotizing fasciitis, he states at [facility] many years ago. Past medical history is significant for multiple psychiatric admissions as well as drug use including cocaine, heroin, and tobacco. He believes that he last ate around noon. He states he is unable to extend his wrist and fingers. PAST MEDICAL HISTORY Significant for - 1. Bipolar disorder. 2. Schizophrenia. 3. Asthma. PAST SURGICAL HISTORY Significant for - 1. Hernia repair. 2. Multiple surgeries on the right upper extremity. 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 He reports significant alcohol use. Smokes one pack per day. States he uses cocaine and other recreational drugs. ALLERGIES No known drug allergies. PHYSICAL EXAMINATION GENERAL: Upon entering the room, the patient has pressured, erratic speech and initially refused to have me look at his arm. After Security was called, he did allow mt to unwrap the bandage on the left wrist. LEFT WRIST: He had a laceration extending from the ulnar styloid to the base of the thumb measuring approximately 7 cm. There are exposed tendon and bone. The patient is unable to extend the wrist or the index, middle, ring or small fingers. He is able to extend the thumb. He reports sensation is intact in the median, ulnar and radial distribution. He has a palpable radial and ulnar pulse. He has good capillary refill to the fingers. He has significant pain over the wrist. No pain over the elbow. X-RAYS X-rays of the left wrist show a nondisplaced fracture of the ulnar styloid as well as a chunk missing from the capitate as well as the other of carpal bones. ASSESSMENT AND PLAN A 31-year-old right-hand dominant male status post a chainsaw injury to the left wrist. Treatment options discussed with the patient. At this time I recommend emergent surgical intervention including irrigation and debridement of the open fracture, repair of any lacerated or injured structures likely including the extensor tendons of the index, middle, ring and small fingers as well as wrist extensors, possible VAC dressing. Surgery is indicated and the patient has elected to proceed. Risks were explained to but not limited to wound complications, infection, stiffness, pain, paresthesias, rupture of the repairs, need for additional surgeries including tendon transfers and the patient elects to proceed. He was educated that upon any tendon repairs that I may perform it is of utmost importance that he be compliant with hand therapy to insure a good outcome. MD ARTURO Lilly/FAISAL /11:44 PM /5:28 AM MTDD
[2016-08-08 05:48] LABS: ALT (GPT) 192 U/L (12-78); ANION GAP 7 MEQ/L (5-15); AST (GOT) 112 U/L (15-37); BLOOD UREA NITROGEN 13 MG/DL (7-18); CHLORIDE 104 MEQ/L (98-107); GLOMERULAR FILTRATION RATE 118 ML/MIN (>89); POTASSIUM 4.5 MEQ/L (3.5-5.1); SODIUM (NA) 138 MEQ/L (136-145)
[2016-08-08 05:50] LABS: ALKALINE PHOSPHATASE 67 U/L (45-117)
--- NOTE | 2016-08-08 07:07 | MP ---
cc: JANNETH BERG DATE OF SERVICE 08/07/2016 PREOPERATIVE DIAGNOSIS Chainsaw injury left hand. POSTOPERATIVE DIAGNOSES 1. Open fractures left carpus and left ulnar styloid with exposed bone. 2. Laceration left index finger extensor tendon. 3. Laceration left middle finger extensor tendon. 4. Laceration left ring finger extensor tendon. 5. Laceration small finger extensor tendon. 6. Laceration radial wrist extensor 7. Laceration ulnar wrist extensor PROCEDURE 1. Irrigation and debridement open fractures left hand including ulnar styloid, capitate and numerous other carpal bones including skin, subcutaneous tissue, muscle and bone. 2. Repair of extensor carpi radialis longus left wrist. 3. Repair of extensor carpi ulnaris left wrist. 4. Repair of extensor digitorum communis left index finger. 5. Repair of extensor digitorum communis left middle finger. 6. Repair of extensor digitorum communis left ring finger. 7. Repair of extensor digitorum communis left small finger. 8. Interpretation of x-rays of left wrist by the surgeon throughout the procedure. SURGEON Dr. Janneth Berg ANESTHESIA General and local. TOURNIQUET TIME 105 minutes at 250 mmHg. BLOOD LOSS 50 cc. INDICATIONS FOR PROCEDURE Tim Patel is a 31-year-old right-hand dominant male with past medical history significant for psychiatric disorders and drug use. He sustained a chainsaw injury prior to admission. He was unable to extend his fingers and had a large open wound over the dorsum of the left wrist and I recommended emergent irrigation and debridement, repair of any injured structures and he elected to proceed. The risks were explained include but not be limited to wound complications, infection, pain and stiffness, paresthesias, need for additional surgeries, tendon rupture, need for tendon transfers and he elected to proceed. The patient understands he must be compliant with occupational hand therapy to ensure a good outcome. DESCRIPTION OF PROCEDURE The patient was identified in the preoperative holding area and the correct extremity was marked. The patient was taken to the operating room where anesthesia was induced, the left upper extremities was prepped and draped in normal sterile fashion. The tourniquet was inflated to 250 mmHg for 105 minutes. There was a large wound from the base of the thumb to the ulnar styloid. This was extended slightly proximally and distally. This was irrigated with 6 liters of antibiotic saline. There were chunks missing from the dorsum of the ulna as well as the capitate and other carpal bones but no fractures to repair. X-rays of the left wrist were reviewed by the surgeon and the DRUJ was stable as well as the wrist. Bone wax was placed over the fractures and then the capsule was repaired with 3-0 PDS. This provided a stable wrist. There was complete laceration of the extensor tendon to the index, middle, ring and small fingers as well as the radial and ulnar wrist extensors. The extensor pollicis longus was intact. There was partial laceration of the extensor retinaculum. The tendons were identified and tagged and then each tendon was repaired sequentially with 4-0 FiberWire in a Nolen and horizontal mattress repair. The decision was made not to repair the EIP as it was significantly tight due to loss of tendon. Again the EDC to the index, middle, ring and small fingers were repaired sequentially again with a four strand repair which had good extension to the fingers and good tenodesis. The radial wrist extensor and the ECU were also repaired in this manner. This restored again tenodesis to the wrist. The extensor pollicis longus was found to be intact. The skin was then able to be closed with 3-0 chromic. Approximately 10 cc of 2% lidocaine with no epinephrine was used to perform local anesthesia over the wrist. The patient was placed into a well-padded volar wrist splint with the fingers in extension and the wrist in extension. The patient will be admitted for IV antibiotics and management of his other medical problems including elevated liver enzymes. Again it will be stressed to the patient the strict importance of compliance with hand therapy. Otherwise he is at high risk for rupture of the tendon repairs. I encouraged the patient to obtain assistance from the hospital, again to ensure a custom splint with hand therapy as well as extensor tendon protocol. This was also discussed with the patient's mother who was in the waiting room. MD ARTURO Lilly/SSB /11:49 PM /6:52 AM URIEL
[2016-08-08 08:00] VITALS: BP 117/81; PULSE 66; RESP 17; TEMP 97.4; O2SAT 98
--- NOTE | 2016-08-08 08:43 | HHI.PR ---
Subjective Remarks resting comfortably with no distress. has some pain to the left hand. no fever or any other complaints. Objective Vitals Vital Signs Date Time Temp Pulse Resp B/P Pulse Ox O2 Delivery O2 Flow Rate FiO2 08/08/16 08:00 97.4 66 17 117/81 98 08/08/16 01:42 96.7 79 20 139/79 96 08/08/16 00:30 97.6 77 14 132/88 99 Nasal Cannula 3 08/08/16 00:15 82 12 137/92 99 Nasal Cannula 3 08/08/16 00:00 76 11 150/93 99 Nasal Cannula 3 08/07/16 23:45 84 13 133/89 99 Nasal Cannula 3 08/07/16 23:30 97.6 67 12 135/93 99 Nasal Cannula 3 08/07/16 23:15 75 12 139/88 99 Nasal Cannula 3 08/07/16 23:00 92 12 135/74 99 Nasal Cannula 3 08/07/16 22:47 91 11 125/66 95 Simple Mask 6 08/07/16 22:42 97.5 95 9 117/66 98 Simple Mask 6 08/07/16 18:05 79 18 141/88 98 Room Air 08/07/16 16:29 97.8 98 14 138/95 100 I/O 08/07/16 08/07/16 08/07/16 08/08/16 08/08/16 08/08/16 07:00 15:00 23:00 07:00 15:00 23:00 Intake Total 1500 ml 970 ml Output Total 50 ml 500 ml Balance 1450 ml 470 ml Intake Oral 0 ml 60 ml IV Total 910 ml Other 1500 ml Output Urine Total 0 ml 500 ml Estimated Blood Loss 50 ml 0 ml # Bowel Movements 0 Result Diagram: 08/08/16 0437 08/08/16 0437 Imaging Last Impressions Radius/Ulna X-Ray 08/07/16 0000 Signed Impressions: Service Date/Time: Sunday, August 07, 2016 16:46 - CONCLUSION: 1. Ulnar styloid fracture. Teja Shafer MD Objective Remarks GENERAL: This is a well-nourished, well-developed patient, in no apparent distress. CARDIOVASCULAR: Regular rate and regular rhythm without murmurs, gallops, or rubs. RESPIRATORY: Clear to auscultation. Breath sounds equal bilaterally. No wheezes , rales, or rhonchi. GASTROINTESTINAL: Abdomen soft, non-tender, nondistended. Normal, active bowel sounds MUSCULOSKELETAL: left arm/jeanna covered with clean dressing. NEURO: Alert & Oriented x4 to person, place, time, situation. Moves all ext x4 Procedures 1. Irrigation and debridement open fractures left hand including ulnar styloid, capitate and numerous other carpal bones including skin, subcutaneous tissue, muscle and bone. 2. Repair of extensor carpi radialis longus left wrist. 3. Repair of extensor carpi ulnaris left wrist. 4. Repair of extensor digitorum communis left index finger. 5. Repair of extensor digitorum communis left middle finger. 6. Repair of extensor digitorum communis left ring finger. 7. Repair of extensor digitorum communis left small finger. Medications and IVs Current Medications Sodium Chloride (NS 1000 ml Inj) 1,000 ml @ 999 mls/hr BOLUS ONCE IV Last administered on 08/07/16 16:43; Start 08/07/16 at 16:45; Stop 08/07/16 at 17:45 ; Status DC Hydromorphone HCl 2 mg 2 mg ONCE ONCE IV PUSH Last administered on 08/07/16 16:43; Start 08/07/16 at 16:45; Stop 08/07/16 at 16:46; Status DC Cefazolin Sodium/ Dextrose (Ancef 2 Gm Premix) 50 ml @ 100 mls/hr ONCE ONCE IV Last administered on 08/07/16 16:43; Start 08/07/16 at 16:45; Stop at 17:14; Status DC Diphtheria/ Tetanus/Acell Pertussis (Boostrix Inj) 0.5 ml ONCE ONCE IM ; Start 08/07/16 at 16:45; Stop 08/07/16 at 16:46; Status DC Hydromorphone HCl (Dilaudid Pf Inj) 2 mg ONCE ONCE IV PUSH Last administered on 08/07/16 17:40; Start 08/07/16 at 17:30; Stop 08/07/16 at 17:31; Status DC Hydromorphone HCl (Dilaudid Pf Inj) 1 mg Q3HR PRN IV PUSH PAIN 1-10 Last administered on 08/08/16 04:46; Start 08/07/16 at 17:30 Ondansetron HCl 4 mg 4 mg Q8HR PRN IV PUSH NAUSEA Last administered on 04:45; Start 08/07/16 at 17:30 Cefazolin Sodium 1000 mg/Sodium Chloride 100 ml @ 200 mls/hr Q8H IV Last administered on 08/08/16 03:31; Start 08/08/16 at 04:00 Sodium Chloride (NS 1000 ml Inj) 1,000 ml @ 100 mls/hr Q10H IV Last administered on 08/07/16 23:05; Start 08/07/16 at 18:15 Bupivacaine HCl (Marcaine Pf 0.5% Inj) 30 ml STK-MED ONCE .ROUTE ; Start at 19:02; Stop 08/07/16 at 19:03; Status DC Bacitracin (Baciguent Oint) 15 applic STK-MED ONCE .ROUTE ; Start 08/07/16 at 19 :02; Stop 08/07/16 at 19:03; Status DC Cefazolin Sodium (Ancef Inj) 1,000 mg STK-MED ONCE .ROUTE Last administered on 08/07/16 19:45; Start 08/07/16 at 19:10; Stop 08/07/16 at 19:11; Status DC Haloperidol Lactate (Haldol Inj) 5 mg STK-MED ONCE .ROUTE ; Start 08/07/16 at 19 :16; Stop 08/07/16 at 19:17; Status DC Lidocaine HCl (Xylocaine 2% Inj) 50 ml STK-MED ONCE .ROUTE Last administered on 08/07/16 20:40; Start 08/07/16 at 20:34; Stop 08/07/16 at 20:35; Status DC Neomycin/Polymyxin (Neosporin G.u. Irr) 3 ml STK-MED ONCE IR Last administered on 08/07/16 19:57; Start 08/07/16 at 19:57; Stop 08/07/16 at 20:49; Status DC Lidocaine HCl (Xylocaine 2% Inj) 50 ml STK-MED ONCE .ROUTE ; Start 08/07/16 at 20:45; Stop 08/07/16 at 20:46; Status DC Midazolam HCl (Versed Inj) 2 mg STK-MED ONCE .ROUTE ; Start 08/07/16 at 22:31; Stop 08/07/16 at 22:32; Status DC Fentanyl Citrate (fentaNYL INJ) 250 mcg STK-MED ONCE .ROUTE ; Start 08/07/16 at 22:31; Stop 08/07/16 at 22:32; Status DC A/P Assessment and Plan A/P - left hand/wrist injury with chain saw with tendon laceration and ulnar styloid fracture s/p: 1. Irrigation and debridement open fractures left hand including ulnar styloid, capitate and numerous other carpal bones including skin, subcutaneous tissue, muscle and bone. 2. Repair of extensor carpi radialis longus left wrist. 3. Repair of extensor carpi ulnaris left wrist. 4. Repair of extensor digitorum communis left index finger. 5. Repair of extensor digitorum communis left middle finger. 6. Repair of extensor digitorum communis left ring finger. 7. Repair of extensor digitorum communis left small finger. continue with pain control- hand surgery following. -elevated LFT's- with history of IVDA- hepatitis panel pending. Discharge Planning when ok with hand surgery. Radha Woo MD Aug 08, 2016 08:43
[2016-08-08] MEDS ORDERED: OXYC-392 PO (08:45)
[2016-08-08 12:00] VITALS: BP 119/78; PULSE 64; RESP 18; TEMP 98; O2SAT 98
[2016-08-08 20:00] VITALS: BP 129/82; PULSE 110; RESP 20; TEMP 97.8; O2SAT 96
[2016-08-08] MEDS: SODIUM CHLOR 0.9% 1000 ML INJ 1,000 ML IV SCH (20:57)
[2016-08-09] VITALS: BP_SYST 129; BP_SYST 137; BP_DIAS 82; BP_DIAS 89; PULSE 109; PULSE 110; RESP 20; RESP 21; TEMP 97.4; TEMP 97.8; O2SAT 96; O2SAT 97
[2016-08-09] MEDS: HYDROmorphone HCL PF 1 MG/ML VIAL IV PUSH PRN (00:18)
[2016-08-09] MEDS: ONDANSETRON HCL 4 MG/2 ML VIAL IV PUSH PRN (00:18)
[2016-08-09 08:14] VITALS: BP 146/89; PULSE 116; RESP 16; TEMP 97.9; O2SAT 94
--- NOTE | 2016-08-09 10:29 | HHI.PR ---
Subjective Remarks resting comfortably with no distress. pain is fairly controlled. no fever. no other complaints. Objective Vitals Vital Signs Date Time Temp Pulse Resp B/P Pulse Ox O2 Delivery O2 Flow Rate FiO2 08/09/16 08:14 97.9 116 16 146/89 94 08/09/16 00:00 97.4 109 21 137/89 97 08/08/16 20:00 97.8 110 20 129/82 96 08/08/16 12:00 98.0 64 18 119/78 98 I/O 08/08/16 08/08/16 08/08/16 08/09/16 08/09/16 08/09/16 07:00 15:00 23:00 07:00 15:00 23:00 Intake Total 970 ml 917 ml 240 ml 360 ml Output Total 500 ml 800 ml 1100 ml 600 ml Balance 470 ml 117 ml -860 ml -240 ml Intake Oral 60 ml 240 ml 240 ml 360 ml IV Total 910 ml 677 ml Output Urine Total 500 ml 800 ml 1100 ml 600 ml Estimated Blood Loss 0 ml # Bowel Movements 0 0 0 0 Result Diagram: 08/08/16 0437 08/08/16 0437 Imaging Last Impressions Radius/Ulna X-Ray 08/07/16 0000 Signed Impressions: Service Date/Time: Sunday, August 07, 2016 16:46 - CONCLUSION: 1. Ulnar styloid fracture. Teja Shafer MD Objective Remarks GENERAL: This is a well-nourished, well-developed patient, in no apparent distress. CARDIOVASCULAR: Regular rate and regular rhythm without murmurs, gallops, or rubs. RESPIRATORY: Clear to auscultation. Breath sounds equal bilaterally. No wheezes , rales, or rhonchi. GASTROINTESTINAL: Abdomen soft, non-tender, nondistended. Normal, active bowel sounds MUSCULOSKELETAL: left arm/jeanna covered with clean dressing. NEURO: Alert & Oriented x4 to person, place, time, situation. Moves all ext x4 Procedures 1. Irrigation and debridement open fractures left hand including ulnar styloid, capitate and numerous other carpal bones including skin, subcutaneous tissue, muscle and bone. 2. Repair of extensor carpi radialis longus left wrist. 3. Repair of extensor carpi ulnaris left wrist. 4. Repair of extensor digitorum communis left index finger. 5. Repair of extensor digitorum communis left middle finger. 6. Repair of extensor digitorum communis left ring finger. 7. Repair of extensor digitorum communis left small finger. Medications and IVs Current Medications Sodium Chloride (NS 1000 ml Inj) 1,000 ml @ 999 mls/hr BOLUS ONCE IV Last administered on 08/07/16 16:43; Start 08/07/16 at 16:45; Stop 08/07/16 at 17:45 ; Status DC Hydromorphone HCl 2 mg 2 mg ONCE ONCE IV PUSH Last administered on 08/07/16 16:43; Start 08/07/16 at 16:45; Stop 08/07/16 at 16:46; Status DC Cefazolin Sodium/ Dextrose (Ancef 2 Gm Premix) 50 ml @ 100 mls/hr ONCE ONCE IV Last administered on 08/07/16 16:43; Start 08/07/16 at 16:45; Stop at 17:14; Status DC Diphtheria/ Tetanus/Acell Pertussis (Boostrix Inj) 0.5 ml ONCE ONCE IM ; Start 08/07/16 at 16:45; Stop 08/07/16 at 16:46; Status DC Hydromorphone HCl (Dilaudid Pf Inj) 2 mg ONCE ONCE IV PUSH Last administered on 08/07/16 17:40; Start 08/07/16 at 17:30; Stop 08/07/16 at 17:31; Status DC Hydromorphone HCl (Dilaudid Pf Inj) 1 mg Q3HR PRN IV PUSH BREAKTHROUGH PAIN Last administered on 08/09/16 00:18; Start 08/07/16 at 17:30 Ondansetron HCl 4 mg 4 mg Q8HR PRN IV PUSH NAUSEA Last administered on 00:18; Start 08/07/16 at 17:30 Cefazolin Sodium 1000 mg/Sodium Chloride 100 ml @ 200 mls/hr Q8H IV Last administered on 08/09/16 04:18; Start 08/08/16 at 04:00 Sodium Chloride (NS 1000 ml Inj) 1,000 ml @ 100 mls/hr Q10H IV Last administered on 08/08/16 20:57; Start 08/07/16 at 18:15 Bupivacaine HCl (Marcaine Pf 0.5% Inj) 30 ml STK-MED ONCE .ROUTE ; Start at 19:02; Stop 08/07/16 at 19:03; Status DC Bacitracin (Baciguent Oint) 15 applic STK-MED ONCE .ROUTE ; Start 08/07/16 at 19 :02; Stop 08/07/16 at 19:03; Status DC Cefazolin Sodium (Ancef Inj) 1,000 mg STK-MED ONCE .ROUTE Last administered on 08/07/16 19:45; Start 08/07/16 at 19:10; Stop 08/07/16 at 19:11; Status DC Haloperidol Lactate (Haldol Inj) 5 mg STK-MED ONCE .ROUTE ; Start 08/07/16 at 19 :16; Stop 08/07/16 at 19:17; Status DC Lidocaine HCl (Xylocaine 2% Inj) 50 ml STK-MED ONCE .ROUTE Last administered on 08/07/16 20:40; Start 08/07/16 at 20:34; Stop 08/07/16 at 20:35; Status DC Neomycin/Polymyxin (Neosporin G.u. Irr) 3 ml STK-MED ONCE IR Last administered on 08/07/16 19:57; Start 08/07/16 at 19:57; Stop 08/07/16 at 20:49; Status DC Lidocaine HCl (Xylocaine 2% Inj) 50 ml STK-MED ONCE .ROUTE ; Start 08/07/16 at 20:45; Stop 08/07/16 at 20:46; Status DC Midazolam HCl (Versed Inj) 2 mg STK-MED ONCE .ROUTE ; Start 08/07/16 at 22:31; Stop 08/07/16 at 22:32; Status DC Fentanyl Citrate (fentaNYL INJ) 250 mcg STK-MED ONCE .ROUTE ; Start 08/07/16 at 22:31; Stop 08/07/16 at 22:32; Status DC Oxycodone HCl (Roxicodone) 5 mg Q4H PRN PO PAIN < 5; Start 08/08/16 at 09:00 Oxycodone HCl (Roxicodone) 10 mg Q4H PRN PO PAIN > 5 Last administered on 09:58; Start 08/08/16 at 09:00 Propofol (Diprivan 200 Mg/20 ml Inj) 200 mg STK-MED ONCE IV ; Start 08/07/16 at 13:42; Stop 08/08/16 at 13:44; Status DC Neostigmine Methylsulfate (Prostigmin Inj) 3 mg STK-MED ONCE IV ; Start at 13:42; Stop 08/08/16 at 13:44; Status DC Ondansetron HCl 4 mg 4 mg STK-MED ONCE IV PUSH ; Start 08/07/16 at 13:42; Stop 08/08/16 at 13:44; Status DC Lactated Ringer's (Lr 1000 ml Inj) 1,000 ml @ As Directed STK-MED ONCE IV ; Start 08/07/16 at 13:42; Stop 08/08/16 at 13:44; Status DC A/P Assessment and Plan A/P - left hand/wrist injury with chain saw with tendon laceration and ulnar styloid fracture s/p: 1. Irrigation and debridement open fractures left hand including ulnar styloid, capitate and numerous other carpal bones including skin, subcutaneous tissue, muscle and bone. 2. Repair of extensor carpi radialis longus left wrist. 3. Repair of extensor carpi ulnaris left wrist. 4. Repair of extensor digitorum communis left index finger. 5. Repair of extensor digitorum communis left middle finger. 6. Repair of extensor digitorum communis left ring finger. 7. Repair of extensor digitorum communis left small finger. continue with pain control- hand surgery following. -elevated LFT's due to hepatitis C with history of IVDA- d/w the patient- f/u as outpatient. Discharge Planning possibly today. case management for dc needs. see med list. d/w the patient and case management. Radha Woo MD Aug 09, 2016 10:28
[2016-08-09] MEDS ORDERED: CEPH-460 PO (10:30)
--- NOTE | 2016-08-09 10:30 | HHI.DCPOC ---
Discharge Care Plan Diagnosis: (1) Extensor tendon laceration of left wrist with open wound (2) Open fracture Your Health Problems Are: Inflammation Swelling Goals to Promote Your Health * To prevent worsening of your condition and complications * To maintain your health at the optimal level Directions to Meet Your Goals Take your medications as prescribed Follow your dietary instruction Follow activity as directed Keep your appointments as scheduled Take your immunizations and boosters as scheduled If your symptoms worsen call your PCP, if no PCP go to Urgent Care Center or Emergency Room Smoking is Dangerous to Your Health. Avoid second hand smoke Call the 24-hour hour crisis hotline for domestic abuse at Radha Woo MD Aug 09, 2016 10:30
--- NOTE | 2016-08-09 10:31 | HHI.DS ---
Discharge Summary Admission Date Aug 07, 2016 at 17:29 Discharge Date: Aug 09, 2016 Admitting Diagnosis chainsaw injury (1) Extensor tendon laceration of left wrist with open wound ICD Code: S66.922A Diagnosis: Principal (2) Contact with chainsaw as cause of accidental injury ICD Code: W29.3XXA Diagnosis: Principal Procedures 1. Irrigation and debridement open fractures left hand including ulnar styloid, capitate and numerous other carpal bones including skin, subcutaneous tissue, muscle and bone. 2. Repair of extensor carpi radialis longus left wrist. 3. Repair of extensor carpi ulnaris left wrist. 4. Repair of extensor digitorum communis left index finger. 5. Repair of extensor digitorum communis left middle finger. 6. Repair of extensor digitorum communis left ring finger. 7. Repair of extensor digitorum communis left small finger. Brief History - From Admission patient is a 31 y/o male who cut his left wrist with a chain saw after he was trying to cut a tree. at the time of my evaluation he was in no acute distress, complaining of pain to the left wrist/ hand. he was found to have tendon laceration and left ulnar styloid fracture. CBC/BMP: 08/08/16 0437 08/08/16 0437 Significant Findings Laboratory Tests Test 08/07/16 08/07/16 08/08/16 16:50 18:10 04:37 White Blood Count 13.3 TH/MM3 13.6 TH/MM3 (4.0-11.0) (4.0-11.0) Monocytes (%) (Auto) 11.1 % (0.0-8.0) Eosinophils (%) (Auto) 5.9 % (0.0-4.0) Monocytes # (Auto) 1.5 TH/MM3 (0-0.9) Eosinophils # (Auto) 0.8 TH/MM3 (0-0.4) Prothrombin Time 11.8 SEC (9.8-11.6) Blood Urea Nitrogen 19 MG/DL (7-18) Aspartate Amino Transf 149 U/L (15-37) 112 U/L (15-37) (AST/SGOT) Alanine Aminotransferase 220 U/L (12-78) 192 U/L (12-78) (ALT/SGPT) Hepatitis C Antibody REACTIVE (NEGATIVE) Neutrophils (%) (Auto) 83.8 % (16.0-70.0) Neutrophils # (Auto) 11.4 TH/MM3 (1.8-7.7) Random Glucose 120 MG/DL (74-106) Albumin 3.0 GM/DL (3.4-5.0) Imaging Last Impressions Radius/Ulna X-Ray 08/07/16 0000 Signed Impressions: Service Date/Time: Sunday, August 07, 2016 16:46 - CONCLUSION: 1. Ulnar styloid fracture. Teja Shafer MD PE at Discharge GENERAL: This is a well-nourished, well-developed patient, in no apparent distress. CARDIOVASCULAR: Regular rate and regular rhythm without murmurs, gallops, or rubs. RESPIRATORY: Clear to auscultation. Breath sounds equal bilaterally. No wheezes , rales, or rhonchi. GASTROINTESTINAL: Abdomen soft, non-tender, nondistended. Normal, active bowel sounds MUSCULOSKELETAL: left arm/jeanna covered with clean dressing. NEURO: Alert & Oriented x4 to person, place, time, situation. Moves all ext x4 Hospital Course - left hand/wrist injury with chain saw with tendon laceration and ulnar styloid fracture s/p: 1. Irrigation and debridement open fractures left hand including ulnar styloid, capitate and numerous other carpal bones including skin, subcutaneous tissue, muscle and bone. 2. Repair of extensor carpi radialis longus left wrist. 3. Repair of extensor carpi ulnaris left wrist. 4. Repair of extensor digitorum communis left index finger. 5. Repair of extensor digitorum communis left middle finger. 6. Repair of extensor digitorum communis left ring finger. 7. Repair of extensor digitorum communis left small finger. continue with pain control- hand surgery following. -elevated LFT's due to hepatitis C with history of IVDA- d/w the patient- f/u as outpatient. Pt Condition on Discharge: Good Discharge Disposition: Discharge Home Discharge Time: <= 30 minutes Discharge Instructions DIET: Follow Instructions for: As Tolerated, No Restrictions Activities you can perform: Regular-No Restrictions Follow up Referrals: Hand Surgery PCP Follow-up New Medications: Cephalexin (Keflex) 500 Mg Cap 500 MG PO Q6H Infection Days 7 Ref 0 CAP Oxycodone (Oxycodone) 5 Mg Tab 5 MG PO Q6H PRN PAIN #20 Ref 0 TAB Radha Woo MD Aug 09, 2016 10:31
[2016-08-09 12:30] VITALS: BP 146/81; PULSE 113; RESP 17; TEMP 98.2; O2SAT 95
== END 2016-08-09 16:18 | disposition home or self-care (01) | DRG 513 ==
LOC: HOR 16:25 → NEDH 17:29 → N07B 08-08 01:22
PROVIDERS: ADMIT Internal Medicine; ATTEND Internal Medicine
PROC: 3E10X8Z Irrigation of Skin and Mucous Membranes using Irrigating Substance (ICD-10-PCS; 2016-08-07)
PROC: 0LQ80ZZ Repair Left Hand Tendon, Open Approach (ICD-10-PCS; principal; 2016-08-07 19:25)
DX: S66.321A Laceration of extensor muscle, fascia and tendon of left index finger at wrist and hand level, initial encounter (principal); S52.612B Displaced fracture of left ulna styloid process, initial encounter for open fracture type I or II; S62.132B Displaced fracture of capitate [os magnum] bone, left wrist, initial encounter for open fracture; S66.327A Laceration of extensor muscle, fascia and tendon of left little finger at wrist and hand level, initial encounter; S66.323A Laceration of extensor muscle, fascia and tendon of left middle finger at wrist and hand level, initial encounter; S66.325A Laceration of extensor muscle, fascia and tendon of left ring finger at wrist and hand level, initial encounter; Y93.H2 Activity, gardening and landscaping; Y92.9 Unspecified place or not applicable; S61.512A Laceration without foreign body of left wrist, initial encounter; J45.909 Unspecified asthma, uncomplicated; F31.9 Bipolar disorder, unspecified; F20.9 Schizophrenia, unspecified; Z72.0 Tobacco use; B19.20 Unspecified viral hepatitis C without hepatic coma; W29.3XXA Contact with powered garden and outdoor hand tools and machinery, initial encounter
CPT/HCPCS: 73090; 76000; 80053; 80074; 85025; 85610; 85730; 96374; 96375; 96376; J0690; J1170; J1630; J2250; J2405; J2710; J3010; J7030; J7120